=== PATIENT | male | born 1955 | race Caucasian/White ===

== ENCOUNTER → 2016-10-23 | Outpatient (CLI) | payer MEDICARE | END | disposition home or self-care (01) | LOC: GMAM 14:09 | PROVIDERS: ATTEND Family Medicine | DX: Z12.5 Encounter for screening for malignant neoplasm of prostate (principal) ==

== ENCOUNTER → 2017-06-07 | Outpatient (CLI) | payer MEDICARE ==
--- NOTE | 2017-06-07 16:45 | US ---
EXAM DESCRIPTION: Renal CLINICAL HISTORY: 62 years Male, ACUTE RENAL FAILURE, UNSPECIFIED COMPARISON: None. TECHNIQUE: Sonographic images of the kidneys and urinary bladder are obtained. FINDINGS: The right kidney measures 10.9 x 5.7 x 5.7 cm. Left kidney measures 11.1 x 5.2 x 6.2 cm. Both kidneys show normal renal cortical echogenicity. No hydronephrosis is seen. Urinary bladder, IVC, and abdominal aorta are not evaluated on this exam. IMPRESSION: Unremarkable renal ultrasound. Electronically signed by: Aníbal Tavarez MD 06/07/2017 4:43 PM CDT
== END | disposition home or self-care (01) ==
LOC: US 10:12
PROVIDERS: ATTEND Family Medicine
DX: N17.9 Acute kidney failure, unspecified (principal)

== ENCOUNTER → 2017-12-30 | Outpatient (CLI) | payer OTHER | LOC: GMAM 14:36 | PROVIDERS: ATTEND Family Medicine | DX: E29.1 Testicular hypofunction (principal); R53.82 Chronic fatigue, unspecified; Z12.5 Encounter for screening for malignant neoplasm of prostate | CPT/HCPCS: 84403; 84439; 84443; G0103 ==

== ENCOUNTER → 2018-01-24 | Outpatient (CLI) | payer OTHER | LOC: SL 18:55 | PROVIDERS: ATTEND Family Medicine | DX: G47.33 Obstructive sleep apnea (adult) (pediatric) (principal); F51.09 Other insomnia not due to a substance or known physiological condition; G47.10 Hypersomnia, unspecified; I10 Essential (primary) hypertension ==

== ENCOUNTER → 2018-04-06 | Outpatient (CLI) | payer OTHER | LOC: GMAM 15:31 | PROVIDERS: ATTEND Family Medicine | DX: E29.1 Testicular hypofunction (principal) ==

== ENCOUNTER → 2018-11-29 | Outpatient (CLI) | payer OTHER | LOC: GMAM 14:18 | PROVIDERS: ATTEND Family Medicine | DX: E29.1 Testicular hypofunction (principal) ==